=== PATIENT | male | born 2000 | race African-American/Black ===

== ENCOUNTER 2021-11-30 07:49 | Emergency (ER) | payer MEDICAID ==
[~2021-11-30] VITALS: Ht 185.4 cm; Wt 68.0 kg
--- NOTE | 2021-11-30 07:58 | NUR ---
TO ER BED 11. BIBS C/O DYSURIA, DISCHARGE X 1 WEEK.
[2021-11-30] MEDS ORDERED: PENICILLIN G BENZATHINE 2.4 MMU/4 ML ML IM ONE (08:21)
[2021-11-30] MEDS ORDERED: LIDOCAINE /MPF 1% VIAL 5 ML VIAL ONE (08:21)
[2021-11-30] MEDS ORDERED: CEFTRIAXONE 500 MG VIAL ONE (08:21)
[2021-11-30] MEDS ORDERED: DOXY100C2 PO (08:24)
[2021-11-30] MEDS: PENICILLIN G BENZATHINE 2.4 MMU/4 ML ML IM ONE (08:30)
[2021-11-30] MEDS: CEFTRIAXONE 500 MG VIAL IM ONE (08:34)
--- NOTE | 2021-11-30 09:13 | NUR ---
BLOOD FOR RAPID PLASMA REAGIN IS COLLECTED BY PHLEBATOMIST.
[2021-11-30 09:16] VITALS: BP 118/67
--- NOTE | 2021-11-30 09:16 | NUR ---
Patient discharged to home in stable condition. Written and verbal after care instructions given. Patient verbalizes understanding of instruction.
== END 2021-11-30 09:17 | disposition home or self-care (01) ==
LOC: ER 07:55
DX: A64 Unspecified sexually transmitted disease (principal)
CPT/HCPCS: 36415; 86592; 87491; 87591; 96372 ×2; 99284; J0558; J0696; J3490